=== PATIENT | male | born 1995 | race Two or more races ===

== ENCOUNTER 2024-08-06 21:53 | Emergency (ER) | payer OTHER, SELFPAY ==
[2024-08-06 21:54] VITALS: BMI 24.2
--- NOTE | 2024-08-06 21:59 | PC.NURSE ---
Pt did not answer when name was called in lobby and was not found outside. Security stated they seen pt leave.
--- NOTE | 2024-08-06 22:37 | PC.NURSE ---
PT CALLED BACK FROM [facility] NO ANSWER
== END 2024-08-06 22:31 | disposition left against medical advice (07) ==
LOC: SERX 22:54
PROVIDERS: Emergency Provider Emergency Medicine
DX: Z53.21 Procedure and treatment not carried out due to patient leaving prior to being seen by health care provider (principal)